=== PATIENT | male | born 1965 | race Caucasian/White ===

== ENCOUNTER 2018-06-14 18:26 | Emergency (ER) | payer MEDICAID ==
[~2018-06-14] VITALS: Ht 188 cm; Wt 112.5 kg
[2018-06-14] MEDS ORDERED: LIDOCAINE 1% HCL (LOCAL ANESTH.) INJ 20ML MDV ONE (22:26)
[2018-06-14] MEDS ORDERED: cefTRIAXone SOD 1,000 MG VL IM ONE (22:30)
[2018-06-14] MEDS ORDERED: AMOXICILLIN/CLAVUL 875 MG TAB PO ONE (22:30)
[2018-06-14 22:50] VITALS: BP 133/67
== END 2018-06-15 00:08 | disposition home or self-care (01) ==
LOC: ER 18:26
DX: L02.31 Cutaneous abscess of buttock (principal)
CPT/HCPCS: 96372; 99283; J0696; J2001